=== PATIENT | male | born 1950 | race Caucasian/White ===

== ENCOUNTER 2021-03-10 10:16 | Day surgery (SDC) | payer OTHER, SELFPAY ==
[~2021-03-10] VITALS: Ht 170.2 cm; Wt 89.8 kg
[2021-03-10] VITALS (7 sets, daily range): BP systolic 132–151
[~2021-03-10 10:16] MED LIST: CEFAZOLIN SOD 2 GM in D5W 50 ML IV ONE
[2021-03-10] MEDS ORDERED: TIMO5DRO16 EACH EYE (11:35)
[2021-03-10] MEDS ORDERED: TIMO5DRO15 EACH EYE (11:37)
[2021-03-10] MEDS ORDERED: ASPI-1393 PO (11:38)
[2021-03-10] MEDS ORDERED: ROCURONIUM BROMIDE 10 MG/ML (ZEMURON) IV ONE (13:13)
[2021-03-10] MEDS ORDERED: PHENYLEPHRINE HCL 10 MG/ML VIAL (NEOSYNEPHRINE) IV ONE (13:13)
[2021-03-10] MEDS ORDERED: ONDANSETRON HCL 4 MG/2 ML VIAL IVP ONE (13:13)
[2021-03-10] MEDS ORDERED: GLYCOPYRROLATE 0.2 MG/ML VIAL IJ ONE (13:13)
[2021-03-10] MEDS ORDERED: fentaNYL CITRATE 250 MCG/5 ML AMP IV ONE (13:13)
[2021-03-10] MEDS ORDERED: PROPOFOL 200MG/ 20ML VIAL (DIPRIVAN) IV ONE (13:13)
[2021-03-10] MEDS ORDERED: ePHEDrine sulfate 50 MG/ML VIAL IVP ONE (13:13)
[2021-03-10] MEDS ORDERED: WATER FOR IRRIGATION,STERILE 1,000 ML IRRIG.SOLN IR ONE (13:13)
[2021-03-10] MEDS ORDERED: BUPIVACAINE /EPINEPHRINE/PF 0.25% 30 ML VIAL INJ ONE (13:13)
[2021-03-10] MEDS ORDERED: METOCLOPRAMIDE HCL 10 MG/2 ML VIAL IVP ONE (13:13)
[2021-03-10] MEDS ORDERED: NS IRRIG SOLN 1000 ML IR ONE (13:13)
[2021-03-10] MEDS ORDERED: LR 1,000 ML IV.SOLN IV ONE (13:13)
[2021-03-10] MEDS ORDERED: SEVOFLURANE 15 MIN GAS INH ONE (13:13)
[2021-03-10] MEDS ORDERED: fentaNYL CITRATE/PF 100 MCG/2 ML AMP IVP PRN ×2 (15:00)
[2021-03-10] MEDS ORDERED: ONDANSETRON HCL 4 MG/2 ML VIAL IVP PRN (15:00)
[2021-03-10] MEDS ORDERED: METOCLOPRAMIDE HCL 10 MG/2 ML VIAL IVP PRN (15:00)
[2021-03-10] MEDS: fentaNYL CITRATE/PF 100 MCG/2 ML AMP ONE ×2 (17:22→17:30)
--- NOTE | 2021-03-10 18:00 | NUR ---
PATIENT ARRIVED TO UNIT FROM PACU, DRESSINGS CLEAN DRY AND INTACT, VITALS ARE STABLE, NO S/S OF DISTRESS, SAFETY MEASURES IN PLACE, SCDS IN PLACE, ICE PACK ON ABDOMEN, EDUCATED ON INCENTIVE SPIROMETER USE, SIGNIFICANT OTHER AT BEDSIDE, BED IN LOWEST LOCKED POSITION, WILL CONTINUE TO MONITOR. PER JUANIS THE CHARGE NURSE, FULL ADMISSION IS TO BE ENDORSED TO CONTRACT COORDINATOR.
[2021-03-10] MEDS ORDERED: ONDANSETRON HCL 4 MG/2 ML VIAL IM PRN (19:15)
[2021-03-10] MEDS ORDERED: HYDROcodone/ACETAMIN 5-325 MG TAB (NORCO/ VICODIN) PO PRN (19:15)
--- NOTE | 2021-03-10 19:24 | NUR ---
PATIENT IN BED, NO S/S OF DISTRESS, BED IN LOWEST LOCKED POSITION, SAFETY MEASURES IN PLACE, ENDORSED CONTINUATION OF CARE TO VICE PRESIDENT [employer].
[2021-03-10] MEDS ORDERED: HYDR-3919 PO (19:35)
[2021-03-10] MEDS ORDERED: KETOROLAC TROMETHAMINE 15 MG VIAL IVP PRN (20:00)
[2021-03-10] MEDS ORDERED: DOCUSATE SODIUM 100 MG CAPSULE PO SCH (21:00)
--- NOTE | 2021-03-10 21:27 | NUR ---
AFTER AMBULATION, VOID AND REPOSITION IN BED, PATIENT REQUEST TO DISCHARGE TO HOME. REQUEST [facility] FOR DISCHARGE. AIRPLANE ELECTRICAL REPAIRER CALL TO MD PER PATIENT REQUEST.
[2021-03-10] MEDS ORDERED: ceFAZolin SODIUM 2 GM in D5W 50 ML IV SCH (22:00)
== END 2021-03-10 22:28 | disposition home or self-care (01) ==
LOC: SDS 10:16 → SMU 10:17 → SDS 22:28
PROVIDERS: ATTEND Surgery
DX: K40.90 Unilateral inguinal hernia, without obstruction or gangrene, not specified as recurrent (principal); R10.2 Pelvic and perineal pain; I10 Essential (primary) hypertension; F41.9 Anxiety disorder, unspecified; C61 Malignant neoplasm of prostate; Z79.899 Other long term (current) drug therapy; Z20.822 Contact with and (suspected) exposure to COVID-19
CPT/HCPCS: 49650; 87081; C1727; C1781; J0690; J2370; J2405; J2704; J2765; J3010 ×2; J3490 ×2; J7060; J7120; S2900; U0003